=== PATIENT | female | born 1990 | race Caucasian/White ===

== ENCOUNTER 2021-02-21 13:29 | Emergency (ER) | payer OTHER ==
[2021-02-21] MEDS ORDERED: IBUPROFEN600 MG PO (18:41)
[2021-02-21] MEDS ORDERED: PROVENTIL HFA6.7 GM INH (18:41)
[2021-02-21] MEDS ORDERED: PREDNISONE20 M1 PO (18:41)
== END 2021-02-21 19:12 | disposition home or self-care (01) ==
LOC: ED 13:29
DX: S80.02XA Contusion of left knee, initial encounter (principal); Z20.822 Contact with and (suspected) exposure to COVID-19; B34.9 Viral infection, unspecified; W18.30XA Fall on same level, unspecified, initial encounter; Y93.89 Activity, other specified; Y92.89 Other specified places as the place of occurrence of the external cause; Y99.9 Unspecified external cause status